=== PATIENT | male | born 2000 | race Caucasian/White ===

== ENCOUNTER 2020-11-02 12:07 | Emergency (ER) | payer BC ==
[~2020-11-02] VITALS: Ht 182.9 cm; Wt 79.8 kg
[2020-11-02 13:13] VITALS: BP 111/75
--- NOTE | 2020-11-02 13:13 | NUR ---
PT PRESENTS TO ED WITH C/O RIGHT EYE PAIN, STATES HE WAS DIAGNOSED WITH PINK EYE ONE WEEK AGO. SEEN AT URGENT CARE ONE WEEK AGO, GIVEN EYE DROPS AND OINTMENT FOR EYE. REDNESS AND EYE DISCHARGE RESOLVED, SEEKING RECHECK. VA'S DONE. LESTER VELAZQUEZ TO PERFORM EYE EXAM AT BEDSIDE.
--- NOTE | 2020-11-02 13:17 | NUR ---
hedy ugalde at bedside for eye exam.
[2020-11-02] MEDS ORDERED: FLUORESCEIN/BENOXINATE 5 ML DROPS OP ONE (13:30)
--- NOTE | 2020-11-02 13:44 | NUR ---
PT GIVEN DC INSTRUCTIONS, PT A&O, RESPS EVEN AND UNLABORED. AMBUALTORY TO DC DESK WITH STEADY GAIT.
== END 2020-11-02 13:45 | disposition home or self-care (01) ==
LOC: ED 13:33
DX: B30.1 Conjunctivitis due to adenovirus (principal)
CPT/HCPCS: 99283